=== PATIENT | male | born 1970 | race Caucasian/White ===

== ENCOUNTER 2023-12-25 23:28 | Emergency (ER) | payer OTHER, SELFPAY ==
[2023-12-25 23:28] VITALS: BMI 45.4
[2023-12-25 23:36] VITALS: BP 149/98
--- NOTE | 2023-12-25 23:47 | ED.GENMED ---
History of Present Illness
<PATI Quintana - Last Filed: 12/26/23 03:22>
General
Chief Complaint: Abdominal Pain
Time Seen by Provider: 12/25/23 23:44
Travel History
Have you had any contact with someone who has COVID-19?: No
Do you have any symptoms of coronavirus? Fever > 100 degrees, chills, cough, shortness of breath, sore throat, loss of taste or smell, muscle aches, or headache?: No
History of Present Illness
History of Present Illness:
This is a 53 yo male with PMH kidney stones 1 year ago presenting for LLQ abdominal pain x 2 hours. He states this pain had an abrupt onset, is rated as 8/10 constant pain, and is slightly aggravated with palpation. He notes he was moving furniture
in house today and finished before the onset of pain. He denies nausea, vomiting, fever, chills, diarrhea, hematemesis, constipation, oliguria, and dysuria. Denies recent abdominal surgeries.
His PMH is significant for kidney stones 1 year ago which presented as back pain. He states his symptoms today are not similar to his presentation for kidney stones.
Review of Systems
<PATI Quintana - Last Filed: 12/26/23 03:22>
Review of Systems
Allergies reviewed?: Yes
Constitutional: Reports no symptoms
Respiratory: Reports no symptoms
Cardiac: Reports no symptoms
ABD/GI: Reports abdominal pain
: Reports no symptoms
Phy Exam
<PATI Quintana - Last Filed: 12/26/23 03:22>
General Physical Exam
General Presentation: mild distress
General age: appears stated age
General Habitus: other (elevated BMI)
General Mental: alert
Cardiovascular Exam
Cardiovascular Exam: regular rate/rhythm
Pulmonary Exam
Pulmonary Exam: lungs clear
Gastrointestinal Exam
Gastrointestinal Exam: normal bowel sounds and other (Mild tenderness to palpation in LLQ, umbilical hernia noted which patient states is at baseline today, abdomen soft and non-distended with no masses, no CVA tenderness, no guarding, no masses )
Palpation: left lower quadrant: Mild tenderness
Skin Exam
Skin Exam: normal color
Course
<PATI Quintana - Last Filed: 12/26/23 03:22>
Orders/Labs/Results
Orders:
Orders
12/25/23 23:48
Complete Blood Count/With Diff Urgent
Comprehensive Metabolic Panel Urgent
Lipase Urgent
Urinalysis Reflex To Culture Urgent
Date Specimen was Collected: 12/26/23
Time Specimen was Collected: 00:25
0.9% Sodium Chloride 1000 ml [Nss] 1,000 ml IV BOLUS
12/26/23 00:07
CT Abd/pelvis W Iv Cont Urgent
Comment:
Reason For Exam: acute LLQ pain
12/26/23 01:06
Ketorolac [Toradol] 15 mg IV NOW STA
Abnormal Lab Results
12/26/23
00:38
WBC 14.9 H 10^3/uL
(4.8-10.8)
RBC 7.04 H 10^6/uL
(4.70-6.10)
MCV 59.9 L fL
(80.0-94.0)
MCH 18.5 L pg
(27.0-31.0)
MCHC 30.8 L g/dL
(33.0-37.0)
RDW 18.6 H %
(11.5-14.5)
Abs Immat Gran (auto) 0.1 H 10^3/uL
(0-0.05)
Absolute Neuts (auto) 12.4 H 10^3/uL
(1.4-6.5)
Absolute Monos (auto) 0.7 H 10^3/uL
(0.1-0.6)
Immature Gran % 0.9 H %
(0-0.5)
Neutrophils % 83.1 H %
(42.2-75.2)
Lymphocytes % 10.2 L %
(20.5-51.1)
Sodium 133 L mmol/L
(135-145)
BUN 27 H mg/dl
(9-20)
Glucose 210 H mg/dl
(70-99)
Urine Ketones Trace A
(Negative)
Urine Glucose Trace A
(Negative)
12/26/23 00:38
12/26/23 00:38
Vital Signs
Initial and Last Documented VS:
Initial Vital Signs
Temp Pulse Resp BP Pulse Ox
97.6 F 90 22 149/98 95
12/25/23 23:36 12/25/23 23:36 12/25/23 23:36 12/25/23 23:36 12/25/23 23:36
Last Documented Vital Signs
Temp Pulse Resp BP Pulse Ox
97.6 F 90 22 125/85 97
12/25/23 23:36 12/25/23 23:36 12/25/23 23:36 12/26/23 02:50 12/26/23 02:51
Hairlt;Simon Montanez DO - Last Filed: 12/26/23 02:45>
Orders/Labs/Results
Orders:
Orders
12/25/23 23:48
Complete Blood Count/With Diff Urgent
Comprehensive Metabolic Panel Urgent
Lipase Urgent
Urinalysis Reflex To Culture Urgent
Date Specimen was Collected: 12/26/23
Time Specimen was Collected: 00:25
0.9% Sodium Chloride 1000 ml [Nss] 1,000 ml IV BOLUS
12/26/23 00:07
CT Abd/pelvis W Iv Cont Urgent
Comment:
Reason For Exam: acute LLQ pain
12/26/23 01:06
Ketorolac [Toradol] 15 mg IV NOW STA
Abnormal Lab Results
12/26/23
00:38
WBC 14.9 H 10^3/uL
(4.8-10.8)
RBC 7.04 H 10^6/uL
(4.70-6.10)
MCV 59.9 L fL
(80.0-94.0)
MCH 18.5 L pg
(27.0-31.0)
MCHC 30.8 L g/dL
(33.0-37.0)
RDW 18.6 H %
(11.5-14.5)
Abs Immat Gran (auto) 0.1 H 10^3/uL
(0-0.05)
Absolute Neuts (auto) 12.4 H 10^3/uL
(1.4-6.5)
Absolute Monos (auto) 0.7 H 10^3/uL
(0.1-0.6)
Immature Gran % 0.9 H %
(0-0.5)
Neutrophils % 83.1 H %
(42.2-75.2)
Lymphocytes % 10.2 L %
(20.5-51.1)
Sodium 133 L mmol/L
(135-145)
BUN 27 H mg/dl
(9-20)
Glucose 210 H mg/dl
(70-99)
Urine Ketones Trace A
(Negative)
Urine Glucose Trace A
(Negative)
12/26/23 00:38
12/26/23 00:38
Vital Signs
Initial and Last Documented VS:
Initial Vital Signs
Temp Pulse Resp BP Pulse Ox
97.6 F 90 22 149/98 95
12/25/23 23:36 12/25/23 23:36 12/25/23 23:36 12/25/23 23:36 12/25/23 23:36
Last Documented Vital Signs
Temp Pulse Resp BP Pulse Ox
97.6 F 90 22 125/85 97
12/25/23 23:36 12/25/23 23:36 12/25/23 23:36 12/26/23 02:50 12/26/23 02:51
<PATI Quintana - Last Filed: 12/26/23 03:22>
MDM/Problems Addressed
Differential Diagnosis Includes:
Renal calculus
-history 1 year ago with presentation of flank pain. Today, he denies flank pain, oliguria, dysuria, hematuria
-3mm renal calculus confirmed on CT, noted along with perinephric and perirenal fat stranding
Diverticulitis
-LLQ abdominal pain and tenderness
Appendicitis
-unlikely due to location of pain
MDM/Problems Addressed:
-Abdominal CT with contrast ordered
-oral antibiotics prescribed due to perinephric and perirenal fat stranding, in addition to his potential risk for being a diabetic
-Patient given NSS, IV ketorolac 15mg
<PATI Quintana - Last Filed: 12/26/23 03:22>
*Radiology
Radiology exam reviewed: radiology read reviewed
*Critical Care Note
Total Time (30-74mins, 75-104mins- exclusive of procedures): Not Applicable
<PATI Quintana - Last Filed: 12/26/23 03:22>
Update Note
Update Note:
Patient was educated about lab findings, including urinalysis which included ketonuria and trace glucose. We explained that ketonuria may be related to dehydration or starvation, and he admits to drinking a small amount of water recently. We
explained that glucose in his urine may be related to his current elevated blood sugar. He was given a prescription for a glucometer and testing strips and instructed to follow up with PCP shortly to evaluate his blood sugar levels.
Patient was given vision report to go home with.
ED Attending Note
<PATI Quintana - Last Filed: 12/26/23 03:22>
-
Portions of this chart may have been created with voice recognition software.� Occasional wrong word or��sound alike� substitutions may have occurred due to the inherent limitations of voice recognition software.
<Simon Montanez DO - Last Filed: 12/26/23 02:45>
ED Attending Note
Patient seen and examined by attending physician: Yes
I performed the substantive portion of visit, reviewed & personally made and approve the management plan that is documented in note by myself or GUILLERMO.: Yes
I performed a history and physical exam of patient and discussed management with resident, I reviewed resident's note and agree with documented findings and plan of care.: Yes
ED Attending Note:
I evaluated the patient at bedside. The patient had relatively abrupt onset left lower quadrant pain but is somewhat reproducible on examination and position. This has been ongoing for the past couple of hours. He has been moving a lot of
furniture earlier. He appears fairly comfortable currently but does request something for pain�will try Toradol. He states his renal function is normal. Will give short of antibiotic as his white count is high at 14.9, he is hyperglycemic. We
have also given a prescription for a glucometer. He feels significant proved after Toradol was given.
Discharge Plan
Departure
Patient Disposition: Home (Routine Discharge)
Date of Disposition: 12/26/23
Time of Disposition: 02:35
Patient with high blood pressure during this ER visit?: Yes
Discharge Problem:
Ureteral colic
Instructions: Kidney Stone, Adult ED
Prescriptions:
New
ciprofloxacin HCl [Cipro] 500 mg tablet
500 mg PO BID Qty: 6 0RF
oxycodone-acetaminophen [Percocet] 5-325 mg tablet
1 - 2 tab PO Q6HPRN PRN (Reason: pain) Qty: 14 0RF
tamsulosin [Flomax] 0.4 mg capsule
0.4 mg PO DAILY Qty: 14 0RF
No Action
ibuprofen 600 mg tablet
600 mg PO Q8H PRN (Reason: Pain) Qty: 10 0RF
ondansetron 4 mg tablet,disintegrating
4 mg PO TID PRN (Reason: nausea and vomiting) Qty: 10 0RF
Referrals:
Garret Iglesias MD [Active] - Follow up in 2-3 days
Jersey Adams, [Family Provider] -
Activity Restrictions/Additional Instructions:
You have a 3 mm stone at the left UVJ (junction of the bladder and ureter). I have given the contact information for local urologist. I recommend 3-4 [id number] ibuprofen (Motrin) every 8 hours with food for a few days. Return here if
worse. If you take narcotic pain medication, I recommend you take something like MiraLAX to prevent constipation. I have given you a copy of the preliminary report by vision radiology. Follow-up your primary care doctor as well. Your white blood
cell count is a little bit high, and there was stranding noted in the ureter. Although there was no definite sign of infection on the urinalysis, I have placed you on a few days of an antibiotic.
Interventions
Interventions:
*Risk Screen - Suicide Last Done: 12/26/23 00:15
*General Assessment Last Done: 12/26/23 00:15
*Neglect/Abuse Screening Last Done: 12/26/23 00:15
ED- Fall Risk Assessment Last Done: 12/26/23 03:03
*ED COVID-19 Vaccine History Last Done: 12/26/23 00:15
*Nursing Disposition Last Done: 12/26/23 03:03
QL-Edqdey-Aozycxfncx Assessment Last Done: 12/26/23 00:15
Discharge Date and Time
Discharge Date/Time: 12/26/23 03:03
Print Language: [id number]
[2023-12-26 00:03] VITALS: BP 136/87
[2023-12-26] MEDS: NSS 1000 IV (00:45)
[2023-12-26 00:48] LABS: % Basophils 0.3 % (0-2); % Eosinophils 0.9 % (0-6); % Immature Granulocytes 0.9 % (0-0.5); % Lymphocytes 10.2 % (20.5-51.1); % Monocytes 4.6 % (1.7-9.3); % Neutrophils 83.1 % (42.2-75.2); Absolute Basophils 0.1 10^3/uL (0-0.2); Absolute Eosinophils 0.1 10^3/uL (0-0.7); Absolute Immature Granulocytes 0.1 10^3/uL (0-0.05); Absolute Lymphocytes 1.5 10^3/uL (1.2-3.4); Absolute Monocytes 0.7 10^3/uL (0.1-0.6); Absolute Neutrophils 12.4 10^3/uL (1.4-6.5); Hematocrit 42.2 % (39.0-52.0); Mean Corp Hgb Conc. 30.8 g/dL (33.0-37.0); Mean Corpuscular Hgb 18.5 pg (27.0-31.0); Mean Corpuscular Volume 59.9 fL (80.0-94.0); Nucleated Red Blood Cells % 0 % (-); Platelet Count 165 10^3/uL (130-400); Red Blood Cell Count 7.04 10^6/uL (4.70-6.10); Red Cell Dist. Width 18.6 % (11.5-14.5); Urine Albumin Trace (Neg - Trace); Urine Bilirubin Negative (Negative); Urine Character Clear (Clear); Urine Color Yellow; Urine Glucose Trace (Negative); Urine Ketone Trace (Negative); Urine Leukocyte Negative (Negative); Urine Nitrite Negative (Negative); Urine Occult Blood Negative (Negative); Urine Specific Gravity 1.025 (<1.030); Urine Urobilinogen Negative (Neg - 1+); White Blood Cell Count 14.9 10^3/uL (4.8-10.8)
[2023-12-26 01:00] VITALS: BP 155/93
[2023-12-26 01:05] LABS: ALT (SGPT) 32 U/L (0-50); AST (SGOT) 24 U/L (17-59); Albumin 4.2 g/dl (3.5-5.0); Alkaline Phosphatase 85 U/L (38-126); Blood Urea Nitrogen 27 mg/dl (9-20); Carbon Dioxide 23 mmol/L (22-30); Chloride 104 mmol/L (98-107); Estimated Creatinine Clearance 118 ml/min; Glucose 210 mg/dl (70-99); Lipase 92 U/L (23-300); Potassium 3.8 mmol/L (3.5-5.1); Sodium 133 mmol/L (135-145); Total Bilirubin 0.7 mg/dl (0.2-1.3); eGFR > 60.00
[2023-12-26] MEDS: TORADOL 15 MG IV (01:10)
[2023-12-26 02:00] VITALS: BP 152/83
[2023-12-26 02:50] VITALS: BP 125/85
== END 2023-12-26 03:03 | disposition home or self-care (01) ==
LOC: EMR 23:28
PROVIDERS: EMERGENCY PHYSICIAN Emergency Medicine; FAMILY PHYSICIAN Family Medicine
DX: N20.0 Calculus of kidney (principal); K42.9 Umbilical hernia without obstruction or gangrene; Z87.442 Personal history of urinary calculi; Z88.6 Allergy status to analgesic agent; Z88.0 Allergy status to penicillin
CPT/HCPCS: 99285; 96374; 96361; 74177; 80053; 81003; 83690; 85025; Q9967